=== PATIENT | male | born 1985 | race Caucasian/White ===

== ENCOUNTER 2018-03-05 00:24 | Inpatient (IN) | payer OTHER, MEDICAID, SELFPAY ==
[2018-03-05] VITALS (13 sets, daily range): BP systolic 104–123; BP diastolic 58–80; PULSE 57–99; RESP 14–24; TEMP 36.3–36.7; O2SAT 98–100; BMI 25.7
--- NOTE | 2018-03-05 01:05 | ED.SKABFB ---
HPI - Skin/Abscess/Foreign Bdy General Chief complaint: Skin/Abscess/Foreign Body Stated complaint: VOMITING,FEVER,PAIN IN LEGS Time Seen by Provider: 03/05/18 00:30 Source: patient Mode of arrival: ambulatory Limitations: no limitations History of Present Illness HPI narrative: 32-year-old male with history of depression and never smoker, presents with severe pain of his right foot and lower extremity. He was seen and evaluated at an outside hospital 2 days ago after a work-related injury resulted in injury to his right foot. He states that he was injured by an industrial drill but there was no break in the skin. He was evaluated and diagnosed with cellulitis and placed on antibiotics. He had negative x-rays but was found to be exquisitely tender and painful with ambulation. He denies fever or chills but is a bit nauseated. He denies taking any pain medications. He has no chest pain or shortness of breath. MD complaint: discoloration Onset (ago): day(s) Tetanus up to date: yes Location: RLE and R foot Severity: severe Severity scale (1-10): 10 Quality: burning and aching Pain Consistency: constant Relieving factors: rest Exacerbating factors: palpation and movement Associated symptoms: nausea Related Data Allergies Allergy/AdvReac Type Severity Reaction Status Date / Time Penicillins Allergy Severe tongue Verified 03/05/18 00:47 swelling haloperidol [From Haldol] Allergy Unknown Verified 03/05/18 00:47 Review of Systems Review of Systems All systems reviewed & are unremarkable except as noted in HPI and below Constitutional Denies chills, Denies fever(s), Denies lethargy and Denies weakness Eyes Denies change in vision, Denies eye discharge, Denies irritation and Denies loss of vision ENT Ears, Nose, Mouth, and Throat: Denies change in voice, Denies neck pain and Denies sore throat Cardiovascular Denies chest pain, Denies irregular heart rhythm, Denies lightheadedness, Denies palpitations, Denies dyspnea, Denies dyspnea on exertion and Denies orthopnea Respiratory Denies cough, Denies dyspnea, Denies dyspnea on exertion and Denies wheezing Gastrointestinal Gastrointestinal: Denies abdominal pain, Denies change in bowel habits, Denies diarrhea, Denies nausea and Denies vomiting Genitourinary Denies hematuria, Denies flank pain, Denies urinary incontinence and Denies urinary urgency Musculoskeletal Denies neck pain Integumentary/Breasts Denies pruritus, Reports erythema, Denies rash, Reports skin pain, Reports skin swelling and Denies wounds Neurologic Denies confusion, Denies loss of vision and Denies weakness Psychiatric Denies anxiety, Denies confusion, Denies depression, Denies homicidal ideation and Denies suicidal ideation Endocrine Denies palpitations Hematologic/Lymphatic Denies easy bruising Allergic/Immunologic Denies wheezing PFSH Medical History Depression (Acute) Social History Smoking Status: Never smoker Comment: Chewing tobacco Exam Narrative Exam Narrative: 32-year-old male obviously quite uncomfortable Initial Vital Signs Initial Vital Signs: Vital Signs Temperature 98.1 F 03/05/18 00:33 Pulse Rate 95 H 03/05/18 00:33 Respiratory Rate 16 03/05/18 00:33 Blood Pressure 122/64 H 03/05/18 00:33 Const General: cooperative, well developed and acute distress Nutritional Appearance: well nourished Orientation: alert, awake, oriented x3 and not confused HENMT Head: normocephalic and atraumatic Ears: external ears normal and TM's normal bilaterally Nose: external nose normal and No nasal discharge Face and sinus: sinuses nontender, face symmetric, no sinus tenderness and No dry mucous membranes Mouth: oral mucosae normal and moist mucous membranes Teeth and gingiva: dentition normal Throat: tonsils normal and uvula midline Eyes General: appearance normal, both eyes and all related structures Eyelids: eyelids normal Conjunctivae: conjunctivae normal Sclera: sclerae normal Pupils: PERRL EOM: EOM intact bilaterally Neck Neck: normal visual inspection, trachea midline, No lymphadenopathy, No midline deformity and No JVD Lymphatic: No lymphedema Chest Chest: normal inspection of the chest Resp Effort & Inspection: normal respiratory effort, able to speak in complete sentences, no respiratory distress and no use of accessory muscles Auscultation: clear to auscultation bilaterally, no rales, no rhonchi and no wheezes Cardio Rate: regular rate Rhythm: regular rhythm Heart Sounds: no click, no gallops, no murmurs and no rubs Pulses: normal peripheral pulses GI Inspection: non-distended Palpation: soft, no hepatosplenomegaly, No guarding, No pulsatile mass and No tender Auscultation: normal bowel sounds Back/Spine/Pelvis Back: No CVA tenderness Cervical Spine: cervical ROM normal and No pain with cervical ROM Thoracic/Lumbar Spine: thoracic and lumbar spine normal to inspection Skin General: no rashes or lesions noted, No jaundice, No petechiae, warm and hot Trauma: no lacerations or abrasions Wounds: no wounds Neuro General: alert, oriented x3, gait normal and no focal motor deficits Speech: speech normal Extrem General: full ROM, no clubbing, cyanosis or edema, no pedal edema and no calf tenderness Right lower extremity: edema (Right lower extremity swollen, warm and erythematous below the knee. Dorsum of foot is notably swollen and erythematous. Cap refill less than 2 sec) Psych Appearance: well kempt Mental Status: mental status grossly normal Attitude: cooperative Thought Content: normal and suicidality Judgment: judgment good Course Decision to Admit Date: 03/05/18 Decision to Admit time: 04:04 Orders Ordered: ED Orders 03/05/18 01:10 Basic Metabolic Panel Stat Bilirubin Total Stat C-Reactive Protein Quant Stat Complete Blood Count AUTO DIFF Stat Erythrocyte Sedimentation Rate Stat Lactate (Lactic Acid) Stat Procalcitonin Stat 03/05/18 01:24 Blood Culture Stat 03/05/18 01:55 US periph venous low extrem bi Stat 03/05/18 02:59 CT angio LE RT Stat 03/05/18 05:35 Urine Drug Screen, Rapid Stat Discontinued Medications Hydromorphone HCl (Dilaudid) 1 mg IV NOW ONE Stop: 03/05/18 01:01 Last Admin: 03/05/18 01:45 Dose: 1 mg Sodium Chloride (Normal Saline 0.9%) 1,000 mls @ 1,000 mls/hr IV BOLUS ONE Stop: 03/05/18 01:42 Last Infusion: 03/05/18 03:45 Dose: 0 mls/hr Admin: 03/05/18 01:44 Dose: 1,000 mls/hr Vancomycin HCl 1,500 mg/ (Sodium Chloride) 500 mls @ 333.333 mls/hr IV NOW ONE Stop: 03/05/18 05:01 Last Admin: 03/05/18 05:33 Dose: 333.333 mls/hr Cefepime HCl 1 gm/ Sodium (Chloride) 100 mls @ 200 mls/hr IV NOW ONE Stop: 03/05/18 05:53 Consultations Consultation #1: Dr. Ace happy to accept Vital Signs - 8 hr 03/05/18 00:33 03/05/18 00:45 03/05/18 03:40 Temperature 98.1 F 98.1 F Pulse Rate 95 H 95 H 99 H Respiratory Rate 16 16 16 Blood Pressure 123/64 H Blood Pressure [Right Arm] 122/64 H 116/74 Pulse Oximetry 99 99 03/05/18 04:48 Temperature Pulse Rate 71 Respiratory Rate Blood Pressure Blood Pressure [Right Arm] 116/78 Pulse Oximetry 98 MDM - Skin/Abscess/Foreign Bdy Differential Diagnosis Likely abscess of skin or subcutaneous tissue, allergic reaction to drug, cellulitis, eczema, insect bites, impetigo, contact dermatitis and other Medical Records Attestation: I reviewed the patient's medical records. Lab Data Attestation: I reviewed the patient's lab results. Result diagrams: 03/05/18 01:10 03/05/18 01:10 Lab Results 03/05/18 03/05/18 03/05/18 Range/Units 01:10 01:10 01:10 WBC 5.6 (4.5-11.0) X10^3/uL RBC 4.58 (4.5-5.9) X10^6/uL Hgb 14.1 (13.5-17.5) g/dL Hct 40.4 L (41-53) % MCV 88.2 (80-100) fL MCH 30.8 (26-34) PG MCHC 34.9 (30-36) % RDW 12.9 (11.6-14.8) % Plt Count 282 (150-400) X10^3/uL Neut % (Auto) 57.0 (50-75) % Lymph % (Auto) 28.9 (25-40) % [place] % (Auto) 12.1 (3-14) % Eos % (Auto) 1.3 L (2-4) % Baso % (Auto) 0.7 (0-2) % Neut # (Auto) 3200 (3643-5624) /uL ESR (0-15) MM/HR Sodium 144 (137-145) mmol/L Potassium 3.6 (3.4-5.1) mmol/L Chloride 106 (98-107) mmol/L Carbon Dioxide 25 (22-32) mmol/L BUN 10 (9-20) mg/dL Creatinine 0.80 (0.66-1.25) mg/dL Estimated GFR > 60.0 (>60) mL/min BUN/Creatinine Ratio 12.5 (6-22) Glucose 97 (70-100) mg/dL Lactate (0.7-2.1) mmol/L Calcium 8.9 (8.4-10.2) mg/dL Total Bilirubin 1.3 (0.2-1.3) mg/dL C-Reactive Protein 2.0 H (<1.0) mg/dL Procalcitonin < 0.05 (<0.5) ng/mL Urine Opiates Screen (Negative) Ur Oxycodone Screen (Negative) Urine Methadone Screen (Negative) Ur Barbiturates Screen (Negative) U Tricyclic Antidepress (Negative) Ur Phencyclidine Scrn (Negative) Ur Amphetamines Screen (Negative) U Methamphetamines Scrn (Negative) Ur MDMA Scrn (Ecstasy) (Negative) U Benzodiazepines Scrn (Negative) Urine Cocaine Screen (Negative) U Marijuana (THC) Screen (Negative) 03/05/18 03/05/18 03/05/18 Range/Units 01:10 01:10 05:35 WBC (4.5-11.0) X10^3/uL RBC (4.5-5.9) X10^6/uL Hgb (13.5-17.5) g/dL Hct (41-53) % MCV (80-100) fL MCH (26-34) PG MCHC (30-36) % RDW (11.6-14.8) % Plt Count (150-400) X10^3/uL Neut % (Auto) (50-75) % Lymph % (Auto) (25-40) % [place] % (Auto) (3-14) % Eos % (Auto) (2-4) % Baso % (Auto) (0-2) % Neut # (Auto) (9834-7194) /uL ESR 16 H (0-15) MM/HR Sodium (137-145) mmol/L Potassium (3.4-5.1) mmol/L Chloride (98-107) mmol/L Carbon Dioxide (22-32) mmol/L BUN (9-20) mg/dL Creatinine (0.66-1.25) mg/dL Estimated GFR (>60) mL/min BUN/Creatinine Ratio (6-22) Glucose (70-100) mg/dL Lactate 0.6 L (0.7-2.1) mmol/L Calcium (8.4-10.2) mg/dL Total Bilirubin (0.2-1.3) mg/dL C-Reactive Protein (<1.0) mg/dL Procalcitonin (<0.5) ng/mL Urine Opiates Screen Negative (Negative) Ur Oxycodone Screen Negative (Negative) Urine Methadone Screen Negative (Negative) Ur Barbiturates Screen Negative (Negative) U Tricyclic Antidepress Negative (Negative) Ur Phencyclidine Scrn Negative (Negative) Ur Amphetamines Screen Positive H (Negative) U Methamphetamines Scrn Positive H (Negative) Ur MDMA Scrn (Ecstasy) Negative (Negative) U Benzodiazepines Scrn Negative (Negative) Urine Cocaine Screen Negative (Negative) U Marijuana (THC) Screen Negative (Negative) Imaging Data Venous US: Radiologist's impression: No DVT LE CT Angio: Radiologist's impression: No suspicious findings. No suspicious vascular findings. Enhanced deep and superficial veins in the calf. Low attenuation consistent with edema or cellulitis in the right distal calf and ankle with no evidence of fasciitis or myositis. MDM Narrative Medical decision making narrative: Differential diagnosis includes cellulitis with failed outpatient treatment. Arterial or venous occlusion: Thought less likely because patient has normal ultrasound and CT scan with IV contrast. Deep space abscess - thought less likely because there is no evidence on imaging or exam Necrotizing fasciitis - thought less likely due to normal labs and CT scan as well as LRINEC score of 0 LRINEC Score for Necrotizing Soft Tissue Infection from [email or web address] on 03/05/2018 All calculations should be rechecked by clinician prior to use RESULT SUMMARY: 0 points If high suspicion for necrotizing fasciitis through clinical history and physical exam, do not calculate a LRINEC score and go straight to operative debridement. Consider IV antibiotics and serial labs to monitor response to treatment. Scores <6 were low risk ? but not no risk ? for necrotizing soft tissue infections. INPUTS: C-reactive protein ?> 0 = <15 mg/dL (150 mg/L) White blood cell count (x10,000/?L) ?> 0 = <15 Hemoglobin (g/dL) ?> 0 = >13.5 Sodium (mEq/L) ?> 0 = ?135 Creatinine ?> 0 = ?1.6 mg/dL (141 ?mol/L) Glucose ?> 0 = ?180 mg/dL (10 mmol/L) Compartment syndrome considered: however, compartments are soft, patient has sensation, cap refill, skin is warm and dry Discharge Plan Departure Patient Disposition: Admitted As Inpatient Clinical Impression: Cellulitis of right lower extremity Admit Date/Time: 03/05/18 06:29 Admit Provider: Germaine Ace
[2018-03-05 01:25] LABS: Add Manual Diff / Slide Review NO; Basophils Percent Auto 0.7 % (0-2); Eosinophils Percent Auto 1.3 % (2-4); Hematocrit 40.4 % (41-53); Hemoglobin 14.1 g/dL (13.5-17.5); Lymphocytes Percent Auto 28.9 % (25-40); Mean Corpuscular HGB Conc 34.9 % (30-36); Mean Corpuscular Hemoglobin 30.8 PG (26-34); Mean Corpuscular Volume 88.2 fL (80-100); Monocytes Percent Auto 12.1 % (3-14); Neutrophils Absolute Auto 3200 /uL (3000-5900); Platelet Count 282 X10^3/uL (150-400); Red Blood Cell Count 4.58 X10^6/uL (4.5-5.9); Red Cell Distribution Width 12.9 % (11.6-14.8); White Blood Cell Count 5.6 X10^3/uL (4.5-11.0)
[2018-03-05 01:33] LABS: BUN Creatinine Ratio 12.5 (6-22); Bilirubin Total 1.3 mg/dL (0.2-1.3); Blood Urea Nitrogen 10 mg/dL (9-20); Calcium 8.9 mg/dL (8.4-10.2); Carbon Dioxide 25 mmol/L (22-32); Chloride 106 mmol/L (98-107); Estimated Glomerular Filt Rate > 60.0 mL/min (>60); Glucose 97 mg/dL (70-100); HEMOLYSIS < 15 (0-50); Lactate (Lactic Acid) 0.6 mmol/L (0.7-2.1); Potassium 3.6 mmol/L (3.4-5.1); Sodium 144 mmol/L (137-145)
[2018-03-05] MEDS: SODIUM CHLORIDE 0.9% 1,000 ML 1000 ML IV (01:44)
[2018-03-05] MEDS: HYDROMORPHONE 1 MG INJ IV (01:45)
[2018-03-05 01:46] LABS: Erythrocyte Sedimentation Rate 16 MM/HR (0-15)
[2018-03-05 01:48] LABS: Procalcitonin < 0.05 ng/mL (<0.5)
--- NOTE | 2018-03-05 01:55 | DI.US.S_ITS ---
PROCEDURE: US PERIPH VENOUS LOW EXTREM RT INDICATIONS: severe pain, swelling, redness, warmth TECHNIQUE: Real-time imaging, as well as color and pulse Doppler interrogation, were performed of the lower extremity deep veins from the inguinal ligament to the popliteal fossa. COMPARISON: None. FINDINGS: The deep veins are normally compressible, and free of intraluminal thrombus. Color and pulse Doppler demonstrate normal phasic intraluminal flow. There is normal augmentation response to distal compression maneuver. IMPRESSION: No DVT found. Dictated by: Romel Cleveland M.D. on 03/05/2018 at 9:23 Approved by: Romel Cleveland M.D. on 03/05/2018 at 9:30
--- NOTE | 2018-03-05 02:59 | DI.CT.S_ITS ---
PROCEDURE: CT ANGIO LE RT INDICATIONS: severe pain out of proportion, foot and calf TECHNIQUE: After the administration of intravenous contrast, 2.5 mm sections acquired from T12 to the feet, with optional delayed image acquisition from the knees to the feet. 3-dimensional maximum intensity projection (MIP) coronal and sagittal reformats, and/or 3-dimensional volume rendering reformatting was then performed. For radiation dose reduction, the following was used: automated exposure control. COMPARISON: None. FINDINGS: Image quality: Excellent. Extravascular tissues: Lung bases are clear. Heart size is normal. Liver is normal in size and enhancement. Gallbladder previously resected. Biliary system is non dilated. Pancreas enhances normally. Spleen is normal in size and enhancement. No adrenal nodules. Kidneys are normal in size and enhancement, without hydronephrosis. Non opacified bowel loops demonstrate normal wall thickness and enhancement. No free fluid or air. No retroperitoneal or mesenteric adenopathy. No ventral hernias. Bladder wall thickness is normal. No inguinal hernias or adenopathy. No suspicious bony lesions. No vertebral body compression fractures. Abdominal aorta: Normal. Right lower extremity: Normal. Left lower extremity: Normal. IMPRESSION: Normal. Source of reported right-sided pain and swelling is not seen. Dictated by: Romel Cleveland M.D. on 03/05/2018 at 10:08 Approved by: Romel Cleveland M.D. on 03/05/2018 at 10:10
[2018-03-05] MEDS: VANCOMYCIN 1,500 MG in SODIUM CHLORIDE 0.9% 500 ML 333.333 ML IV ×3 (05:33→22:23)
[2018-03-05 05:50] LABS: Urine Amphetamines Positive (Negative); Urine Cocaine Negative (Negative); Urine Methamphetamines Positive (Negative); Urine Morphine/Opi cutoff 2000 Negative (Negative); Urine Tetrahydrocannabinol Negative (Negative)
[2018-03-05 05:51] LABS: Urine Barbiturates Negative (Negative); Urine Benzodiazepines Negative (Negative); Urine MDMA Negative (Negative); Urine Methadone Negative (Negative); Urine Oxycodone Negative (Negative); Urine Phencyclidine Negative (Negative); Urine Tricyclic Antidepressant Negative (Negative)
[2018-03-05] MEDS: HYDROMORPHONE 0.5 MG INJ 1 MG IV (06:35)
--- NOTE | 2018-03-05 06:51 | PC.NURSE ---
osmin to continue on floor
[2018-03-05] MEDS: SODIUM CHLORIDE 0.9% 1,000 ML 125 ML IV (07:18)
--- NOTE | 2018-03-05 07:27 | PC.NURSE ---
Pt is AxOx3, moaning, complaining of 9 out of 10 RLE pain. Slight limp with his gait due to the pain, standby assist. IVF running as ordered, Dilaudid [employer] started. Vital signs stable.
--- NOTE | 2018-03-05 07:40 | P.HP_ITS ---
History of Present Illness Date Patient Seen: 03/05/18 Time Patient Seen: 07:40 Chief complaint: VOMITING,FEVER,PAIN IN LEGS Narrative: This 32-year-old male is admitted from the ER with a history of right lower extremity pain and swelling for the last 3 days the onset was with what he thinks is industrial dural injury there was no break in the skin he went to an ER 2 days ago that he was given antibiotics diagnosed with cellulitis but the swelling and pain and increased the swelling is gone up to the knee so he presented to the ER with some nausea but no fever chills or rigors Is no other previous medical illness and is usually on no medications Patient History Medical History Depression (Acute) Family & Social History Family History: Reviewed 03/05/18 by Germaine Ace MD Social History: household members friend(s) Prior Living Arrangements House Safety & Behavioral: Feels Safe in Current Yes Environment Been Physically Hurt or No Threatened By a Person Suicidal Ideation Description None Suicide Plan Description No Plan Tobacco & Substance use: Smoking Status Never smoker alcohol intake frequency 0-2 drinks per day Substance Use Type does not use Meds Home Medications Medication Instructions Recorded Confirmed Type No Known Home Medications 03/05/18 03/05/18 History Allergies Allergy/AdvReac Type Severity Reaction Status Date / Time Penicillins Allergy Severe tongue Verified 03/05/18 00:47 swelling haloperidol [From Haldol] Allergy Unknown Verified 03/05/18 00:47 Review of Systems Review of Systems A 12 point review of all systems was negative other than the pain and swelling of the right lower extremity no dyspnea or shortness of breath cough or phlegm or chest pain Exam Vital Signs (past 8 hours): - 03/05/18 00:33 03/05/18 00:45 03/05/18 03:40 Temperature 98.1 F 98.1 F Pulse Rate 95 H 95 H 99 H Respiratory Rate 16 16 16 Blood Pressure 123/64 H Blood Pressure [Right Arm] 122/64 H 116/74 Pulse Oximetry 99 99 03/05/18 04:48 03/05/18 06:33 03/05/18 07:26 Temperature 98 F Pulse Rate 71 66 69 Respiratory Rate 14 Blood Pressure 118/66 Blood Pressure [Right Arm] 116/78 117/74 Pulse Oximetry 98 98 99 Oxygen Delivery Method Room Air Const General: cooperative, healthy appearing, comfortable and well developed Orientation: alert, awake and oriented x3 HENMT Head: normal to inspection Ears: hearing grossly normal bilaterally Nose: external nose normal Face and sinus: normal facial exam Eyes General: appearance normal, both eyes and all related structures Eyelids: eyelids normal Conjunctivae: conjunctivae normal Sclera: sclerae normal Pupils: PERRL Neck Neck: normal visual inspection and JVD Thyroid: thyroid normal Resp Effort & Inspection: normal respiratory effort, no respiratory distress and no use of accessory muscles Auscultation: clear to auscultation bilaterally Cardio Palpation: normal PMI Rate: regular rate Rhythm: regular rhythm Heart Sounds: S1 normal and S2 normal GI Inspection: normal to inspection Palpation: soft and no hepatosplenomegaly Skin General: no rashes or lesions noted Neuro General: alert, awake, oriented x3 and no meningeal signs Cranial Nerves: CN's II-XI intact bilaterally Cognition: normal cognition Speech: speech normal Motor: muscle tone normal throughout Extrem Right lower extremity: lower leg (tender red and swollen) and ankle (tender swollen ) Psych Appearance: grossly normal Speech and Movement: speech and movement normal Mood: congruent mood Affect: normal affect Attitude: cooperative Thought Process: normal Thought Content: normal Objective Labs Result Diagrams: 03/05/18 01:10 03/05/18 01:10 Labs: Laboratory Results - last 24 hr 03/05/18 03/05/18 03/05/18 01:10 01:10 01:10 WBC 5.6 RBC 4.58 Hgb 14.1 Hct 40.4 L MCV 88.2 MCH 30.8 MCHC 34.9 RDW 12.9 Plt Count 282 Neut % (Auto) 57.0 Lymph % (Auto) 28.9 [place] % (Auto) 12.1 Eos % (Auto) 1.3 L Baso % (Auto) 0.7 Neut # (Auto) 3200 ESR Sodium 144 Potassium 3.6 Chloride 106 Carbon Dioxide 25 BUN 10 Creatinine 0.80 Estimated GFR > 60.0 BUN/Creatinine Ratio 12.5 Glucose 97 Lactate Calcium 8.9 Total Bilirubin 1.3 C-Reactive Protein 2.0 H Procalcitonin < 0.05 Urine Opiates Screen Ur Oxycodone Screen Urine Methadone Screen Ur Barbiturates Screen U Tricyclic Antidepress Ur Phencyclidine Scrn Ur Amphetamines Screen U Methamphetamines Scrn Ur MDMA Scrn (Ecstasy) U Benzodiazepines Scrn Urine Cocaine Screen U Marijuana (THC) Screen 03/05/18 03/05/18 03/05/18 01:10 01:10 05:35 WBC RBC Hgb Hct MCV MCH MCHC RDW Plt Count Neut % (Auto) Lymph % (Auto) [place] % (Auto) Eos % (Auto) Baso % (Auto) Neut # (Auto) ESR 16 H Sodium Potassium Chloride Carbon Dioxide BUN Creatinine Estimated GFR BUN/Creatinine Ratio Glucose Lactate 0.6 L Calcium Total Bilirubin C-Reactive Protein Procalcitonin Urine Opiates Screen Negative Ur Oxycodone Screen Negative Urine Methadone Screen Negative Ur Barbiturates Screen Negative U Tricyclic Antidepress Negative Ur Phencyclidine Scrn Negative Ur Amphetamines Screen Positive H U Methamphetamines Scrn Positive H Ur MDMA Scrn (Ecstasy) Negative U Benzodiazepines Scrn Negative Urine Cocaine Screen Negative U Marijuana (THC) Screen Negative Assessment & Plan Plan: Assessment/Plan Narrative: 1. Cellulitis of the lower extremity however the white count and other lab tests including sed rate of breathing is normal will check uric acid in case the acute onset was a gout will also get orthopedic consultation CT angio of the right lower extremity does not reveal any evidence of pockets of collection or gas 2. Positive urine methamphetamine screen Will treat the cellulitis with IV antibiotics vancomycin Levaquin and clindamycin the patient is allergic to penicillin but was able to receive a 3rd generation cephalosporin in the other ER 2 days Time Spent With Patient Time with patient: Greater than 35 minutes
[2018-03-05] MEDS: DEXTROSE 5%-0.9% NS 1,000 ML 100 ML IV (09:37)
[2018-03-05] MEDS: CLINDAMYCIN 600 MG/50 ML PIGGYBACK 50 MG IV ×3 (09:39→23:53)
[2018-03-05] MEDS: HEPARIN 5,000 UNIT/ML VIAL 5000 UNIT SUBCUT ×2 (09:40→21:26)
[2018-03-05] MEDS: DOCUSATE 100 MG CAPSULE PO ×2 (09:40→21:28)
[2018-03-05] MEDS: levoFLOXacin 750 MG/150 ML PIGGYBACK 100 MG IV (10:58)
--- NOTE | 2018-03-05 11:27 | P.HP_ITS ---
History of Present Illness Date Patient Seen: 03/05/18 Time Patient Seen: 10:18 Chief complaint: VOMITING,FEVER,PAIN IN LEGS Narrative: This is a 32-year-old gentleman who accidentally got stuck in the right foot with a felipa nail about 3 or 4 days ago. He notes that he had some ongoing problems with pain but then noted some progressive swelling in his right ankle and also some into his left ankle. He has a history of a significant injury to his left upper extremity in the past when he got cut with a crab line and they were worried about a necrotizing fasciitis and he spent 3 weeks in the hospital. When his right ankle became painful he reported to the emergency room to make sure he was not developing a severe infection. He denies a history of gout and there is no family history of gout. He has not had significant fevers or chills. 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 Patient History Medical History Depression (Acute) Comment: Prior history of fairly extensive left upper extremity surgery for severe infection. History of previous ft fractures and left foot injury treated with closed reduction. Family & Social History Family History: Reviewed 03/05/18 by Germaine Ace MD Social History: household members friend(s) Prior Living Arrangements House Safety & Behavioral: Feels Safe in Current Yes Environment Been Physically Hurt or No Threatened By a Person Suicidal Ideation Description None Suicide Plan Description No Plan Tobacco & Substance use: Smoking Status Never smoker alcohol intake frequency 0-2 drinks per day Substance Use Type does not use Comment: Emergency Room labs reportedly positive for amphetamines Meds Home Medications Medication Instructions Recorded Confirmed Type No Known Home Medications 03/05/18 03/05/18 History Allergies Allergy/AdvReac Type Severity Reaction Status Date / Time Penicillins Allergy Severe tongue Verified 03/05/18 00:47 swelling haloperidol [From Haldol] Allergy Unknown Verified 03/05/18 00:47 Review of Systems Review of Systems Denies significant fevers or chills, has not been ill, no history of recurrent joint swelling Exam Vital Signs (past 8 hours): - 03/05/18 03:40 03/05/18 04:48 03/05/18 06:33 Temperature Pulse Rate 99 H 71 66 Respiratory Rate 16 Blood Pressure Blood Pressure [Right Arm] 116/74 116/78 117/74 Pulse Oximetry 99 98 98 03/05/18 07:26 03/05/18 08:11 Temperature 98 F 97.4 F L Pulse Rate 69 57 L Respiratory Rate 14 14 Blood Pressure 118/66 117/74 Blood Pressure [Right Arm] Pulse Oximetry 99 100 Oxygen Delivery Method Room Air Narrative Exam Narrative: Patient is resting comfortable in bed, HEENT is benign, skin is remarkable for multiple tattoos, left upper extremity has multiple incisions with slight decreased range of motion in his wrist and hand, lungs are clear cor regular rate and rhythm abdomen soft and benign. The left lower extremity has mild swelling in the left ankle there is a security device on his left ankle , right lower extremity has good range of motion into the right knee, he has got decreased range of motion into the right ankle, skin is intact, there is mild pretibial erythema, there is a puncture wound on the dorsum of his right foot with no evidence of fluctuance, Objective Labs Result Diagrams: 03/05/18 01:10 03/05/18 01:10 Labs: Laboratory Results - last 24 hr 03/05/18 03/05/18 03/05/18 01:10 01:10 01:10 WBC 5.6 RBC 4.58 Hgb 14.1 Hct 40.4 L MCV 88.2 MCH 30.8 MCHC 34.9 RDW 12.9 Plt Count 282 Neut % (Auto) 57.0 Lymph % (Auto) 28.9 [place] % (Auto) 12.1 Eos % (Auto) 1.3 L Baso % (Auto) 0.7 Neut # (Auto) 3200 ESR Sodium 144 Potassium 3.6 Chloride 106 Carbon Dioxide 25 BUN 10 Creatinine 0.80 Estimated GFR > 60.0 BUN/Creatinine Ratio 12.5 Glucose 97 Lactate Calcium 8.9 Total Bilirubin 1.3 C-Reactive Protein 2.0 H Procalcitonin < 0.05 Urine Opiates Screen Ur Oxycodone Screen Urine Methadone Screen Ur Barbiturates Screen U Tricyclic Antidepress Ur Phencyclidine Scrn Ur Amphetamines Screen U Methamphetamines Scrn Ur MDMA Scrn (Ecstasy) U Benzodiazepines Scrn Urine Cocaine Screen U Marijuana (THC) Screen 03/05/18 03/05/18 03/05/18 01:10 01:10 05:35 WBC RBC Hgb Hct MCV MCH MCHC RDW Plt Count Neut % (Auto) Lymph % (Auto) [place] % (Auto) Eos % (Auto) Baso % (Auto) Neut # (Auto) ESR 16 H Sodium Potassium Chloride Carbon Dioxide BUN Creatinine Estimated GFR BUN/Creatinine Ratio Glucose Lactate 0.6 L Calcium Total Bilirubin C-Reactive Protein Procalcitonin Urine Opiates Screen Negative Ur Oxycodone Screen Negative Urine Methadone Screen Negative Ur Barbiturates Screen Negative U Tricyclic Antidepress Negative Ur Phencyclidine Scrn Negative Ur Amphetamines Screen Positive H U Methamphetamines Scrn Positive H Ur MDMA Scrn (Ecstasy) Negative U Benzodiazepines Scrn Negative Urine Cocaine Screen Negative U Marijuana (THC) Screen Negative Assessment & Plan Plan: Assessment/Plan Narrative: History of right foot puncture wound without evidence of abscess. Right ankle effusion with no erythema and a normal white count. Mild cellulitis right lower extremity. Positive drug screen. I have recommended that we use Toradol for pain management in addition to low-dose pain medications. I agree with starting IV antibiotics. We will see how he responds to antibiotics if he develops fevers or progressive worsening pain he may be a candidate for aspiration of his right ankle. Clinically I think it is unlikely that he has a septic right ankle.
[2018-03-05] MEDS: KETOROLAC 30 MG/ML VIAL IV ×3 (11:39→23:53)
--- NOTE | 2018-03-05 11:39 | CM.DANOTE ---
Discharge Planning/Care Management DCP: assessment: Case received and discussed in morning Care team meeting. Pt is a 32 year old male who admitted early this morning 06 to care of the hospitalist team. Dx R LE cellulitis that has failed ER antibitic treament. Urine + methamphetamine and amphetamine. Payer: [place]icaid. PCP: pt says does not have one. Met briefly with pt to introduce self and role. Pt is polite but does not make eye contact. He is aware that the DCP/social work team will be seeing him tomorrow and is agreeable at this point. CM Discharge Assessment Start: 03/05/18 11:30 Freq: Status: Active Protocol: Document 03/05/18 11:30 ITV (Rec: 03/05/18 11:38 ITV [id number]) Discharge Planning Assessment Advance Directives? No History Provided By Patient Medical Record Prior Living Arrangements House Household Members friend(s) Additional Comment Pt aware that a CM social insurance specialist/dc shutdown planner will be following his case as of tomorrow and says is agreeable to same. Urine test: + amphetamine and methamphetamine Whiteboard Updated in Patient Room with Yes name and ext. # of Frog Shaker Review Status In Process Next Review Type Continued Stay Review
[2018-03-05] MEDS: PANTOPRAZOLE 40 MG VIAL IV (11:42)
--- NOTE | 2018-03-05 13:02 | PC.NURSE ---
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 Pt is now on po vicodin and routine toradol. He is mostly sleeping this day. Pleasant and cooperative with care. Lower extremities with 2+ edema. L.ankle and foot pink but no warm to touch.
[2018-03-05] MEDS: HYDROCODONE/ACET 5/325 TABLET 1 TAB PO ×2 (16:09→20:43)
[2018-03-06] VITALS (9 sets, daily range): BP systolic 110–126; BP diastolic 54–85; PULSE 65–72; RESP 16–20; TEMP 36.4–36.9; O2SAT 98–99
[2018-03-06] MEDS: HYDROCODONE/ACET 5/325 TABLET 1 TAB PO ×4 (00:45→20:41)
[2018-03-06] MEDS: KETOROLAC 10 MG TABLET PO ×3 (03:49→22:32)
[2018-03-06 06:12] LABS: Add Manual Diff / Slide Review NO; Basophils Percent Auto 1.4 % (0-2); Eosinophils Percent Auto 3.5 % (2-4); Hemoglobin 13.7 g/dL (13.5-17.5); Lymphocytes Percent Auto 29.5 % (25-40); Mean Corpuscular HGB Conc 34.4 % (30-36); Mean Corpuscular Hemoglobin 30.9 PG (26-34); Mean Corpuscular Volume 89.9 fL (80-100); Monocytes Percent Auto 9.8 % (3-14); Neutrophils Absolute Auto 2100 /uL (3000-5900); Neutrophils Percent Auto 55.8 % (50-75); Platelet Count 255 X10^3/uL (150-400); Red Blood Cell Count 4.45 X10^6/uL (4.5-5.9); Red Cell Distribution Width 13.2 % (11.6-14.8); White Blood Cell Count 3.8 X10^3/uL (4.5-11.0)
[2018-03-06 06:17] LABS: BUN Creatinine Ratio 11.1 (6-22); Blood Urea Nitrogen 10 mg/dL (9-20); Calcium 8.4 mg/dL (8.4-10.2); Carbon Dioxide 27 mmol/L (22-32); Chloride 109 mmol/L (98-107); Estimated Glomerular Filt Rate > 60.0 mL/min (>60); Glucose 109 mg/dL (70-100); HEMOLYSIS < 15 (0-50); Potassium 4.4 mmol/L (3.4-5.1); Sodium 143 mmol/L (137-145)
[2018-03-06 06:30] LABS: Vancomycin Trough 15.5 ug/mL (10-20)
[2018-03-06] MEDS: KETOROLAC 30 MG/ML VIAL IV (06:56)
[2018-03-06] MEDS: VANCOMYCIN 1,500 MG in SODIUM CHLORIDE 0.9% 500 ML 333 ML IV ×3 (06:56→22:30)
[2018-03-06] MEDS: VANCOMYCIN TROUGH 1 REQUEST MISC (06:57)
[2018-03-06] MEDS: CLINDAMYCIN 600 MG/50 ML PIGGYBACK 50 MG IV ×3 (09:13→23:59)
[2018-03-06] MEDS: PANTOPRAZOLE 40 MG VIAL IV (09:14)
[2018-03-06] MEDS: HEPARIN 5,000 UNIT/ML VIAL 5000 UNIT SUBCUT ×2 (09:14→20:41)
[2018-03-06] MEDS: DOCUSATE 100 MG CAPSULE PO ×2 (09:14→20:41)
[2018-03-06] MEDS: levoFLOXacin 750 MG/150 ML PIGGYBACK 100 MG IV (10:54)
--- NOTE | 2018-03-06 13:16 | PM.PN.1 ---
Subjective Date Patient Seen: 03/06/18 Time Patient Seen: 13:17 Interval history: THIS GENTLEMAN IS ADMITTED WITH RIGHT LOWER EXTREMITY TENDERNESS AND PAIN AND SWELLING REDNESS NO FEVER CHILLS RIGORS HE GIVES A HISTORY OF A INDUSTRIAL DURAL INJURY TO THE RIGHT FOOT BUT NO SKIN BREAK ORTHOPEDICS WAS CONSULTED WILL CONTINUE TO WATCH ON IV ANTIBIOTICS FOR ACTUALLY ASPIRATION OF THE ANKLE JOINT ACHES AT CURRENTLY HE DOES NOT COMPLAIN OF ANYTHING NEW THIS PAIN IS UNDER CONTROL HE HAS NO FEVER CHILLS OR RIGORS HE HAD A PREVIOUS HISTORY OF LEFT UPPER EXTREMITY INFECTION WHICH THEY THOUGHT COULD BE NECROTIZING FASCIITIS HE WAS IN HOSPITAL FOR 3 WEEKS THEN Exam Vital Signs (past 8 hours): - 03/06/18 07:00 03/06/18 08:07 03/06/18 12:28 Temperature 97.5 F L 97.8 F Pulse Rate 67 71 Respiratory Rate 16 16 Blood Pressure 110/85 H 115/75 Pulse Oximetry 98 99 98 Oxygen Delivery Method Room Air Const General: cooperative, healthy appearing, comfortable and well developed Orientation: alert, awake and oriented x3 HENMT Head: normal to inspection, normocephalic and atraumatic Ears: hearing grossly normal bilaterally Nose: external nose normal Face and sinus: normal facial exam Mouth: oral mucosae normal Eyes General: appearance normal, both eyes and all related structures Eyelids: eyelids normal Conjunctivae: conjunctivae normal Sclera: sclerae normal EOM: EOM intact bilaterally Neck Neck: normal visual inspection, full ROM and No JVD Thyroid: thyroid normal Resp Effort & Inspection: normal respiratory effort, able to speak in complete sentences, no respiratory distress and no use of accessory muscles Auscultation: clear to auscultation bilaterally Cardio Palpation: normal PMI Rate: regular rate Rhythm: regular rhythm Heart Sounds: S1 normal and S2 normal GI Inspection: normal to inspection Palpation: soft and no hepatosplenomegaly Skin General: no rashes or lesions noted Neuro General: alert, awake, oriented x3 and no meningeal signs Cranial Nerves: CN's II-XI intact bilaterally Cognition: normal cognition Speech: speech normal Motor: muscle tone normal throughout Extrem Other: RT FOOT ANDANKLE SWELLING PERSISTS rt le REDNESS AND SWELLING DECREASED Psych Appearance: grossly normal Mental Status: mental status grossly normal Mood: congruent mood Affect: normal affect Attitude: cooperative Thought Process: normal Thought Content: normal Judgment: judgment good Objective Labs Result Diagrams: 03/06/18 05:52 03/06/18 05:52 Labs: Laboratory Results - last 24 hr 03/06/18 03/06/18 03/06/18 05:52 05:52 05:52 WBC 3.8 L RBC 4.45 L Hgb 13.7 Hct 40.0 L MCV 89.9 MCH 30.9 MCHC 34.4 RDW 13.2 Plt Count 255 Neut % (Auto) 55.8 Lymph % (Auto) 29.5 [place] % (Auto) 9.8 Eos % (Auto) 3.5 Baso % (Auto) 1.4 Neut # (Auto) 2100 L Sodium 143 Potassium 4.4 Chloride 109 H Carbon Dioxide 27 BUN 10 Creatinine 0.90 Estimated GFR > 60.0 BUN/Creatinine Ratio 11.1 Glucose 109 H Calcium 8.4 Vancomycin Trough 15.5 Assessment & Plan Plan: Assessment/Plan Narrative: 1. RIGHT LOWER EXTREMITY CELLULITIS AFTER A PUNCTURE WOUND 2. POSITIVE URINE DRUG SCREEN Time Spent With Patient Time with patient: 25 - 35 minutes
--- NOTE | 2018-03-06 14:10 | PM.PN.1 ---
Subjective Date Patient Seen: 03/06/18 Time Patient Seen: 13:10 Interval history: patient notes that he does hear it seemed to be responding to antibiotics. His pain is decreased in comparison to previously. He still has significant pain in his right ankle when he gets up and ambulates. His swelling is decreased in the left leg and his mobility is improved. Still has significant pain in the right leg. Exam Vital Signs (past 8 hours): - 03/06/18 07:00 03/06/18 08:07 03/06/18 12:28 Temperature 97.5 F L 97.8 F Pulse Rate 67 71 Respiratory Rate 16 16 Blood Pressure 110/85 H 115/75 Pulse Oximetry 98 99 98 Oxygen Delivery Method Room Air Narrative Exam Narrative: Left leg full range of motion minimal swelling in the ankle, no erythema. Right leg continued moderate swelling in the right ankle, no significant swelling in the foot, tender to palpation over the ankle joint and along the medial aspect of the ankle and medial malleolus. Objective Labs Result Diagrams: 03/06/18 05:52 03/06/18 05:52 Labs: Laboratory Results - last 24 hr 03/06/18 03/06/18 03/06/18 05:52 05:52 05:52 WBC 3.8 L RBC 4.45 L Hgb 13.7 Hct 40.0 L MCV 89.9 MCH 30.9 MCHC 34.4 RDW 13.2 Plt Count 255 Neut % (Auto) 55.8 Lymph % (Auto) 29.5 [place] % (Auto) 9.8 Eos % (Auto) 3.5 Baso % (Auto) 1.4 Neut # (Auto) 2100 L Sodium 143 Potassium 4.4 Chloride 109 H Carbon Dioxide 27 BUN 10 Creatinine 0.90 Estimated GFR > 60.0 BUN/Creatinine Ratio 11.1 Glucose 109 H Calcium 8.4 Vancomycin Trough 15.5 Assessment & Plan Plan: Assessment/Plan Narrative: patient does appear to be responding to antibiotics. He is afebrile and his white count is normal to slightly decreased. His initial C reactive protein and sed rate were centrally normal. He does have persistent swelling in the right ankle. CT scan does not show evidence of a fracture or obvious gross trauma. If his symptoms in his right ankle and swelling persist I would consider workup with an MRI scan of his right ankle tomorrow. If it showed a significant right ankle joint effusion he could have an aspiration of his right ankle by interventional Radiology to look for crystals.
--- NOTE | 2018-03-06 15:08 | CM.DPC ---
DCP Cont: Per MD, pt seems to be responding well to IV-Abx although still has some swelling in one ankle and may need MRI if swelling does not decrease and does not need surgical intervention at this time. SW met bedside with pt and explained role and inquired about pt's positive UDS for methamphetamines and amphetamines and pt was not able to hold eye contact and was very brief with his answer of acknowledging that he knew his UDS would be positive but was not willing to discuss further regarding his hx of drug use or treatment/resources and declined any CD resources at this time. SW informed pt that we will follow up with him prior to d/c to confirm that pt does not have any concerns or needs at discharge and that we can help connect him to any resources if needed. Pt acknowledged but was not interested in talking further. Plan: SW to follow for confirmation that pt will be able to d/c on oral medications and follow up with pt to confirm that he is not interested in any further CD/MH or community resources prior to d/c. SERGIO Forbes
[2018-03-07] VITALS (8 sets, daily range): BP systolic 109–135; BP diastolic 66–87; PULSE 62–71; RESP 16–20; TEMP 36.4–36.8; O2SAT 96–100
--- NOTE | 2018-03-07 00:12 | PC.NURSE ---
Patient has police monitor ankle bracelet on. Will not be able to receive MRI.
[2018-03-07] MEDS: HYDROCODONE/ACET 5/325 TABLET 1 TAB PO ×3 (00:52→18:06)
[2018-03-07] MEDS: VANCOMYCIN 1,500 MG in SODIUM CHLORIDE 0.9% 500 ML 333 ML IV ×3 (06:17→22:38)
--- NOTE | 2018-03-07 07:35 | DI.MRI.S_ITS ---
PROCEDURE: MR ANKLE RT WO CON INDICATIONS: evaluate for abscess/fluid collection. Medial and posterior right ankle pain TECHNIQUE: Noncontrast sagittal T1 spin echo and T2 fast spin echo with fat saturation, axial proton density fast spin echo and T2 fast spin echo with fat saturation, coronal T1 spin echo and T2 fast spin echo with fat saturation through the ankle/hindfoot. COMPARISON: None. FINDINGS: Image quality: Excellent. Bones and joints: No bone marrow contusions or fractures. No hindfoot coalitions. No osteochondral injuries of the talar dome. No pathologic joint effusions. There is circumferential hindfoot subcutaneous edema. No definite loculated fluid collection is seen although sensitivity for abscess would be improved with contrast-enhanced images. Medial structures: The posterior tibialis, flexor digitorum longus, and flexor hallucis longus tendons are intact although there is thickening of the distal posterior tibialis tendon suggesting tendinopathy. Mild fluid surrounding the posterior tibialis tendon. The posterior tibial neurovascular bundle appears normal within the tarsal tunnel, without extrinsic mass effect. The deep layer (anterior and posterior tibiotalar ligaments) and superficial layer (tibionavicular, tibiospring, and tibiocalcaneal ligaments) of the deltoid ligament appear normal. The spring ligament components (superomedial calcaneonavicular, medioplantar oblique calcaneonavicular, and inferoplantar longitudinal ligaments) are intact. Lateral structures: The anterior talofibular, calcaneofibular, and posterior talofibular ligaments appear intact. More superiorly, the anterior and posterior tibiofibular ligaments appear intact, as is the intermalleolar ligament. The tibiofibular syndesmosis is normal in width at 2 mm or less. The peroneus longus and brevis tendons demonstrate normal location and morphology. Adjacent bony peroneal tubercle and retrotrochlear prominence are normal in size. The sinus tarsi demonstrates normal fatty signal, without edema, fibrosis, or cyst formation. Visualized sinus tarsi components (cervical ligament, interosseous talocalcaneal ligament, roots of the inferior extensor retinaculum) appear normal. The calcaneonavicular and calcaneocuboid components of the bifurcate ligament appear intact. The dorsal calcaneocuboid ligament appears intact. Anterior structures: The tibialis anterior, extensor hallucis longus, and extensor digitorum longus tendons appear intact. The dorsal talonavicular ligament appears intact. Posterior and plantar structures: Achilles tendon is intact. Mild medial band plantar fascial thickening IMPRESSION: Circumferential hindfoot subcutaneous edema. No definite loculated fluid collection however if there is persistent high clinical concern, a contrast-enhanced study could be performed. Mild posterior tibialis insertional tendinopathy and mild tenosynovitis. Mild medial band plantar fasciitis Dictated by: Jesús Prescott M.D. on 03/07/2018 at 16:19 Approved by: Jesús Prescott M.D. on 03/07/2018 at 16:27
[2018-03-07] MEDS: HEPARIN 5,000 UNIT/ML VIAL 5000 UNIT SUBCUT ×2 (09:09→21:22)
[2018-03-07] MEDS: DOCUSATE 100 MG CAPSULE PO ×2 (09:10→21:22)
[2018-03-07] MEDS: CLINDAMYCIN 600 MG/50 ML PIGGYBACK 50 MG IV ×2 (10:03→18:08)
--- NOTE | 2018-03-07 10:17 | PM.PN.1 ---
Subjective Date Patient Seen: 03/07/18 Time Patient Seen: 07:17 Interval history: Patient seen at bedside for a consult for right ankle cellulitis. Redness has drastically gone down however if patient is still extremely tender palpation and there is palpable swelling. He states that it is still extremely painful to move it. Exam Vital Signs (past 8 hours): - 03/07/18 05:05 Temperature 97.8 F Pulse Rate 62 Respiratory Rate 20 Blood Pressure 119/68 Pulse Oximetry 98 Oxygen Delivery Method Room Air Oxygen Flow Rate 0 Narrative Exam Narrative: Patient is well-developed well-nourished in no acute distress. Patient alert oriented x3. Right ankle exam has no palpable fluctuance noted however he does have full range of motion of the ankle. He is neurovascularly intact in this extremity does not appear to have any signs of compartment syndrome. Calf soft and compressible. Ankle monitor present on contralateral leg. Objective Labs Result Diagrams: 03/06/18 05:52 03/06/18 05:52 Assessment & Plan Plan: Assessment/Plan Narrative: Per Dr. Shaffer's recommendations from 03/06/2018, since the patient's swelling and pain is not improved we will order MRI of the right ankle to evaluate for drainable fluid or abscess. He will need to have his ankle monitor removed from his contralateral side in order to have the MRI. if there is drainable fluid recommendation is IR to do CT-guided drainage. Quality VTE Deep Vein Thrombosis/Pulmonary Embolism Present on Admission: No
[2018-03-07] MEDS: levoFLOXacin 750 MG/150 ML PIGGYBACK 100 MG IV (11:14)
[2018-03-07] MEDS: PANTOPRAZOLE 40 MG TABLET PO (11:14)
[2018-03-07] MEDS: KETOROLAC 10 MG TABLET PO ×2 (11:15→21:22)
--- NOTE | 2018-03-07 13:43 | PC.NURSE ---
CHARGE NURSE NOTE REGARDING TRACKING BRACELET/LATE ENTRY: THIS CHARGE NURSE ASKED EMILIO LICEA TO BE INVOLVED WITH THE PROCESS OF OBTAINING CLEARANCE TO REMOVE PATIENT'S TRACKING BRACELET, FOR AN MRI, FROM THE [facility] OFFICE IN [place]. EMILIO REPORTED BACK TO THIS LOAN OFFICER, THAT SHE CONTACTED OFFICER NICK BACA, WHO STATES THAT THE BRACELET MAY BE REMOVED. THAT NICK BACA SHOULD BE CALLED WHEN PATIENT IS DISCHARGED AT [phone], AND THAT THEY WILL ARRANGE WITH PATIENT TO HAVE THE BRACELET REPLACED. PRIMARY NURSE NOTIFIED.
--- NOTE | 2018-03-07 13:45 | PM.PN.1 ---
Subjective Date Patient Seen: 03/07/18 Time Patient Seen: 10:45 Interval history: Patient admitted for right lower extremity swelling redness and a pain phone have cellulitis of the lower extremity that is improving he also has swelling on the ankle seems to have had a penetrating injury to the foot prior to the onset of this he has had previous history of left upper extremity suspected necrotizing fasciitis was in the hospital for 3 weeks Currently pain is under control redness and swelling in the lower extremities majority has resolved but he has ankle swelling and tenderness Exam Vital Signs (past 8 hours): - 03/07/18 08:30 03/07/18 08:35 Temperature 97.8 F Pulse Rate 65 Respiratory Rate 18 Blood Pressure 129/70 H Pulse Oximetry 98 98 Oxygen Delivery Method Room Air Oxygen Flow Rate 0 Const General: cooperative, healthy appearing, comfortable and well developed Orientation: alert, awake and oriented x3 HENMT Head: normal to inspection Ears: hearing grossly normal bilaterally Nose: external nose normal Face and sinus: normal facial exam Mouth: oral mucosae normal Eyes Eyelids: eyelids normal Conjunctivae: conjunctivae normal Sclera: sclerae normal EOM: EOM intact bilaterally Neck Neck: normal visual inspection, full ROM and No JVD Thyroid: thyroid normal Resp Effort & Inspection: normal respiratory effort, able to speak in complete sentences, no respiratory distress and no use of accessory muscles Auscultation: clear to auscultation bilaterally Cardio Rate: regular rate Rhythm: regular rhythm Heart Sounds: S1 normal and S2 normal GI Inspection: normal to inspection Palpation: soft and no hepatosplenomegaly Skin General: no rashes or lesions noted Neuro General: alert, awake, oriented x3 and no meningeal signs Cranial Nerves: CN's II-XI intact bilaterally Cognition: normal cognition Speech: speech normal Motor: muscle tone normal throughout Extrem Other: rt le ankle swollen red tender Psych Affect: normal affect Attitude: cooperative Thought Process: normal Thought Content: normal Judgment: judgment good Objective Labs Result Diagrams: 03/06/18 05:52 03/06/18 05:52 Assessment & Plan Plan: Assessment/Plan Narrative: 1. 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
--- NOTE | 2018-03-07 14:37 | PC.NURSE ---
day shift alerted by Ortho PA that they would like MRI of ankle. pt has tracking bracelet. Pt states it was from [place] and his contact at [facility] is named molly. Called office and spoke with Caitie Jimenez who was covering for Molly, normal parking regulation enforcement officer. notified battery recharger of this call and plan, she then spoke with Karla, see note by Alisson Pink RN. Spoke with Oniel Blake who will be removing bracelet. Aware MRI will be done around [id number]. plan to be up to floor around 1500 to remove anklet. Pt aware of plan. provided pt with pain meds as ordered, pt states pain is 9/10 however he is sleeping comfortably often throughout shift.
[2018-03-07] MEDS: DEXTROSE 5%-0.9% NS 1,000 ML 100 ML IV (16:13)
--- NOTE | 2018-03-07 22:56 | PC.NURSE ---
alert and oriented x4, vss on ra, independent in room, good appetite with multiple snacks this shift. IV antibiotics continued, pain stated to be tolerable with current analgesics.
[2018-03-08] MEDS: CLINDAMYCIN 600 MG/50 ML PIGGYBACK 50 MG IV ×2 (00:34→09:52)
[2018-03-08 02:53] VITALS: O2SAT 98
[2018-03-08 04:45] VITALS: BP 115/73; PULSE 57; RESP 16; TEMP 36.7; O2SAT 96
[2018-03-08 05:51] LABS: Add Manual Diff / Slide Review NO; Basophils Percent Auto 1.3 % (0-2); Eosinophils Percent Auto 2.9 % (2-4); Hematocrit 42.2 % (41-53); Hemoglobin 14.6 g/dL (13.5-17.5); Lymphocytes Percent Auto 36.9 % (25-40); Mean Corpuscular HGB Conc 34.7 % (30-36); Mean Corpuscular Hemoglobin 30.6 PG (26-34); Mean Corpuscular Volume 88.1 fL (80-100); Monocytes Percent Auto 11.4 % (3-14); Neutrophils Absolute Auto 2200 /uL (3000-5900); Neutrophils Percent Auto 47.5 % (50-75); Platelet Count 304 X10^3/uL (150-400); Red Blood Cell Count 4.79 X10^6/uL (4.5-5.9); Red Cell Distribution Width 13.3 % (11.6-14.8); White Blood Cell Count 4.7 X10^3/uL (4.5-11.0)
[2018-03-08 05:56] LABS: BUN Creatinine Ratio 21.1 (6-22); Blood Urea Nitrogen 19 mg/dL (9-20); Carbon Dioxide 27 mmol/L (22-32); Chloride 106 mmol/L (98-107); Estimated Glomerular Filt Rate > 60.0 mL/min (>60); Glucose 90 mg/dL (70-100); HEMOLYSIS < 15 (0-50); Potassium 4.6 mmol/L (3.4-5.1); Sodium 142 mmol/L (137-145); Uric Acid 5.7 mg/dL (3.5-8.5)
[2018-03-08 06:30] LABS: Vancomycin Trough 20.1 ug/mL (10-20)
[2018-03-08] MEDS: HYDROCODONE/ACET 5/325 TABLET 1 TAB PO (06:45)
[2018-03-08] MEDS: PANTOPRAZOLE 40 MG TABLET PO (06:47)
[2018-03-08 08:00] VITALS: BP 123/68; PULSE 74; RESP 18; TEMP 37; O2SAT 98
[2018-03-08] MEDS: HEPARIN 5,000 UNIT/ML VIAL 5000 UNIT SUBCUT (09:52)
[2018-03-08] MEDS: DOCUSATE 100 MG CAPSULE PO (09:52)
--- NOTE | 2018-03-08 11:15 | PC.NURSE ---
discharge pt states he took all belongings with him. Was sleeping peacefully this AM, upon awakening resting easily in bed watching tv. states pain is 9/10. wasn't time for pt to receive any pain medication at the time and he stated he was fine. d/c instructions provided to pt and friend. notified to f/u with MD if any questions or concerns or symptom worsening. 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 Explained to pt that his ankle may swell up after working and walking on his ankle, he acknowledged understanding of that. pt left with letter from Karla re: ankle bracelet. pt took all belongings with him including anklet and cell phone. pt walked out of hospital with his friend and [employer] escort.
--- NOTE | 2018-03-08 15:05 | P.DS_ITS ---
History of Present Illness Date Patient Seen: 03/08/18 Chief complaint: VOMITING,FEVER,PAIN IN LEGS Narrative: VOMITING,FEVER,PAIN IN LEGS Narrative: This is a 32-year-old gentleman who accidentally got stuck in the right foot with a felipa nail about 3 or 4 days ago. He notes that he had some ongoing problems with pain but then noted some progressive swelling in his right ankle and also some into his left ankle. He has a history of a significant injury to his left upper extremity in the past when he got cut with a crab line and they were worried about a necrotizing fasciitis and he spent 3 weeks in the hospital. When his right ankle became painful he reported to the emergency room to make sure he was not developing a severe infection. He denies a history of gout and there is no family history of gout. He has not had significant fevers or chills. 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 Discharge Providers Date of admission: 03/05/18 06:29 Consults: 03/05/18 07:38 Consult to Orthopedic Surgery Routine Comment: Consulting Provider: Senait Shaffer Reason for consultation: Rt ANKLE ? GOUT vS CELLULITIS Has provider been notified: No Discharge provider: Patria Bartlett MD Summary Discharge Diagnosis: Cellulitis Right Ankle Sprain Hospital Course: Patient was admitted for cellulitis and evaluation of his right ankle. He had an MRI which was negative. He was treated with antibiotics with improvement of his cellulitis. He was deemed appropriate and discharged home Status at Discharge Functional status at discharge: independent ambulation Overall status at discharge: patient is back to baseline Time Spent with Patient Less than 30 minutes Exam Vital Signs (past 8 hours): - 03/08/18 08:00 Temperature 98.6 F Pulse Rate 74 Respiratory Rate 18 Blood Pressure 123/68 H Pulse Oximetry 98 Oxygen Delivery Method Room Air Oxygen Flow Rate 0 Narrative Exam Narrative: Lungs: Clear to auscultation CV: RRR nl Sl S2 Abd: Soft/ non tender non distended Ext: no edema Skin: scant redness of bilateral lower extremities right greater than left Objective Labs Result Diagrams: 03/08/18 05:33 03/08/18 05:33 Labs: Laboratory Results - last 24 hr 03/08/18 03/08/18 03/08/18 05:33 05:33 05:33 WBC 4.7 RBC 4.79 Hgb 14.6 Hct 42.2 MCV 88.1 MCH 30.6 MCHC 34.7 RDW 13.3 Plt Count 304 Neut % (Auto) 47.5 L Lymph % (Auto) 36.9 [place] % (Auto) 11.4 Eos % (Auto) 2.9 Baso % (Auto) 1.3 Neut # (Auto) 2200 L Sodium 142 Potassium 4.6 Chloride 106 Carbon Dioxide 27 BUN 19 Creatinine 0.90 Estimated GFR > 60.0 BUN/Creatinine Ratio 21.1 Glucose 90 Uric Acid 5.7 Calcium 9.0 Vancomycin Trough 20.1 H Discharge Plan Discharge Plan Patient Disposition: Home Provider Discharge Instructions Diet: Regular Activity: as tolerated Discharge Data Attending Provider: Germaien Ace Admit Date/Time: 03/05/18 06:29 Discharges patient from system. Discharge Date/Time: 03/08/18 11:20 Quality VTE Deep Vein Thrombosis/Pulmonary Embolism Present on Admission: No
--- NOTE | 2018-03-08 15:44 | CM.DPC ---
DCP/continued: Reviewed chart. Spoke with MD in AM rounds re: d/c plan. MD reports that she will check to see if IV abx can be changed to po and discharge patient today. RN aware. Karla Sampson has been notified re: ankle bracelet. Patient refused any community resources for substance abuse. P: Home today. SERGIO Farooq
== END 2018-03-08 11:20 | disposition home or self-care (01) | DRG 383 ==
LOC: ED 06:12 → AC 06:30
PROVIDERS: Admitting Provider Internal Medicine; Emergency Provider Emergency Medicine; Visit Provider Internal Medicine
DX: L03.115 Cellulitis of right lower limb (principal); S91.031A Puncture wound without foreign body, right ankle, initial encounter; F32.9 Major depressive disorder, single episode, unspecified
CPT/HCPCS: 36415; 36591; 73706; 73721; 80048; 80202; 80305; 82247; 83605; 84145; 84550; 85025; 85651; 86140; 87040; 93970; 96361; 96365; 96366; 96375; 96376; 99284; 99285; C9113; J1170; J1644; J1885; J1956; Q9967